=== PATIENT | male | born 1975 | race African-American/Black ===

== ENCOUNTER 2024-03-04 15:53 | Outpatient (AMB) | payer MEDICAID, SELFPAY ==
--- NOTE | 2024-03-04 15:52 | ORTHONT_ITS ---
Med/Allergies Allergies & Medications Allergies clarithromycin Allergy (Unknown, Verified 03/04/24 15:52) sea food Allergy (Uncoded 03/04/24 15:52) Medication Reconciliation loratadine 10 mg tablet 10 mg PO QDAY #0 tabs 06/10/15 [History Confirmed 03/04/24] albuterol sulfate 90 mcg/actuation aerosol inhaler (Ventolin HFA) 2 puff inhalation Q6H 07/18/17 [History Confirmed 03/04/24] aspirin 81 mg tablet,delayed release (Brionna Low Dose Aspirin) 81 mg PO DAILY 07/18/17 [History Confirmed 03/04/24] meloxicam 7.5 mg tablet 7.5 mg PO QDAY #45 tabs 10/12/23 [Rx Confirmed 03/04/24] Subjective Visit Visit for: follow up visit, knee and injections Immunization / Flu Flu Vaccine in the Last 12 Months: No Flu Vaccine Exclusion Criteria: No Exclusion Criteria History of Present Illness Chief complaint: LEFT KNEE PAIN. FOLLOW UP 3 MONTH KNEE INJECTION Patient is a pleasant 48-year-old male with bilateral knees. The left knee pain is worse than the right. Has tried braces, ibuprofen physical therapy. The pain has been ongoing for the last several years. He has lost a lot of weight. He tried injections and it only lasted for 2 weeks. We discussed this case and insurance denied it. They did not think that he had Kellgren-Ra grade 4 changes and thus MRIs demonstrating severe arthritis was not enough for that. We thus will continue with conservative management. I also discussed that he should get a second opinion. He is asking for a scooter and discussed with him that I have severe reservations about going to wheelchair or scooter as this will result in stiffness and worsening of his symptoms Personal History Red flag PMH: none (NON SMOKER ) Pain Pain level (0-10): 8 Pain duration: CONSTANT Pain location: inside (medial) and outside (lateral) Pain quality: sharp, dull and aching Pain timing: night and increases with activity Associated signs & symptoms: weakness and stiffness Ambulatory data Ambulatory device: none Treatments Number of previous injections: 2 Improvement with previous injections: No Improvement with PT: No Improvement with NSAIDS: no Review of Systems Review of Systems: All systems negative unless otherwise noted in HPI. Assessment and Plan Problem List (1) Arthritis of both knees: Status: Acute Plan: Patient is a 48-year-old male with bilateral knee arthritis of moderate severity. We discussed nonoperative and operative options. We tried to get authorization for total knee replacement well and this is was denied. We thus recommend injections and anti-inflammatories and continued physical therapy. We will have to proceed with conservative treatment at this time. I discussed with the patient that it may be worth getting a second opinion or pain management doctor. We will see him back for bilateral knee injections at the next visit Office Procedures GNS Level of Care Nursing/Assessment Patient Status: Established Patient Nursing Assessment/Reassesment: Medication Reconciliation, Update PMH in EMR and Vital Signs Coordination of Care: Complex Care and Chronic Disease 1-5, Education Complex Pt/Fam, Consent,records obtained, informed consent, 1 Ins Authorization, Results/Orders obtained and Staff clarify orders Established Patient Charge Established Patient Point Assignment: 110 Telehealth Telemed Phone/Video with patient at home & Dr,PA,SUPERVISOR RIDE ASSEMBLY: Yes
== END 2024-03-04 15:56 | disposition home or self-care (01) ==
LOC: HODSRG 15:53
PROVIDERS: PCP Physician Assistant; Referring Provider Physician Assistant; Supervising Provider Orthopaedic Surgery Adult Reconstructive Orthopaedic Surgery; Visit Provider Orthopaedic Surgery Adult Reconstructive Orthopaedic Surgery
DX: M17.0 Bilateral primary osteoarthritis of knee (principal); M25.562 Pain in left knee; M25.561 Pain in right knee
CPT/HCPCS: 99212; G0463

== ENCOUNTER 2024-03-21 12:59 | Outpatient (AMB) | payer MEDICAID, SELFPAY ==
[2024-03-21 13:09] VITALS: BP 155/94; PULSE 71; RESP 18; TEMP 36.3; O2SAT 99; BMI 38.1
--- NOTE | 2024-03-21 13:09 | RHCORTHONT_ITS ---
Vital signs 03/21/24 13:09 Height 1.83 m Height Method Stated Weight 127.63 kg Weight Measurement Method Standing Scale BMI 38.1 BP 155/94 H Blood Pressure Source Automatic Cuff Blood Pressure Location Right Upper Arm Position Sitting Respiration 18 Pulse 71 Pulse Source Monitor Temp 97.3 F Temp Source Temporal Artery Scan Pulse Oximetry (%) 99 Oxygen Delivery Method Room Air Med/Allergies Allergies & Medications Allergies clarithromycin Allergy (Unknown, Verified 03/21/24 13:10) sea food Allergy (Uncoded 03/21/24 13:10) Medication Reconciliation loratadine 10 mg tablet 10 mg PO QDAY #0 tabs 06/10/15 [History Confirmed 03/21/24] albuterol sulfate 90 mcg/actuation aerosol inhaler (Ventolin HFA) 2 puff inhalation Q6H 07/18/17 [History Confirmed 03/21/24] aspirin 81 mg tablet,delayed release (Brionna Low Dose Aspirin) 81 mg PO DAILY 07/18/17 [History Confirmed 03/21/24] meloxicam 7.5 mg tablet 7.5 mg PO QDAY #45 tabs 10/12/23 [Rx Confirmed 03/21/24] Exam Exam Patient is in no acute distress and is cooperative with the examination today. Breathing is nonlabored. In no respiratory distress. Bilateral extremities were evaluated and demonstrates sensation intact to light touch. Palpable pedal pulses are present. No significant edema is present. Bilateral hips were examined. The patient has no pain with log roll of the hips. Internal rotation to 30 degrees and external rotation to 30 degrees is painless. Negative FADIR. The left knee was examined. The left knee is in [varus] alignment. Range of motion from [0-115] degrees. Knee is stable to varus and valgus as well as AP translation with <5mm. Patient has a [negative] McMurrays. There is [no] pain with patellofemoral compression and [no] crepitus noted. The knee is [tender] to palpation [medially]. The right knee was also examined. The right knee is in [varus] alignment. Range of motion from [0-120] degrees. Knee is stable to varus and valgus as well as AP translation with <5mm. Patient has a [negative] McMurrays. There is [no] pain with patellofemoral compression and [no] crepitus noted. The knee is [tender] to palpation [medially]. I reviewed the patient's MRI from [facility]. This is dated 08/19/2023. This demonstrates severe tricompartmental articular loss and arthritis X-rays of the bilateral knees demonstrates moderate arthritis. The left knee MRI Demonstrate more pathology than the x-ray Assessment and Plan Problem List (1) Arthritis of both knees: Status: Acute Plan: Patient is a 48-year-old male with bilateral knee arthritis of moderate severity. We discussed nonoperative and operative options. We tried to get authorization for total knee replacement well and this is was denied. We thus recommend injections and anti-inflammatories and continued physical therapy. We thus will continue with bilateral knee injections today Recommend knee cortisone injections as patient would like to proceed with conservative treatment at this time. The risks and benefits of the procedure were reviewed with the patient and patient gave verbal consent to continue with the procedure. Procedure: performed by Dr. Hinojosa Using sterile technique the Bilateral knees were thoroughly prepped with alcohol, and approximately 1 cc of Kenalog 40 mg/mL and 4 cc of 1% lidocaine was injected into each knee without resistance into the medial tibial femoral joint space. The patient tolerated the procedure. Office Procedures GNS Level of Care Nursing/Assessment Patient Status: Established Patient Nursing Assessment/Reassesment: Medication Reconciliation, Update PMH in EMR and Vital Signs Coordination of Care: Complex Care and Chronic Disease 1-5, Education Complex Pt/Fam, Consent,records obtained, informed consent, Results/Orders obtained and Staff clarify orders Established Patient Charge Established Patient Point Assignment: 95 Established Patient Point Charge: EP Level 3 (80-115) Surgical Proc/IM SQ injection Major Surgical Procedure: Yes (BILATERAL KNEE INJECTIONS ) Medication Given Medication Given Medication Given: Yes Documented Dose Given: 8 Route: Infiitration Medication Given Medication Given Medication Given: Yes Documented Dose Given: 2 Route: Infiitration Office Meds Xylocaine 10 mg/mL (1 %) injection solution Performing Provider: Sandro Hinojosa MD Performing Location: [facility] Administered by: Sandro Hinojosa MD on 03/21/24 13:53 Dose Route Admin Location Dispensed Lot Number Expiration Date [facility] Dermatology Technician 40 mL Infiltration 40 mL [id number] [facility] triamcinolone acetonide 40 mg/mL suspension for injection Performing Provider: Sandro Hinojosa MD Performing Location: [facility] Administered by: Sandro Hinojosa MD on 03/21/24 13:53 Dose Route Admin Location Dispensed Lot Number Expiration Date [facility] Dermatology Technician 80 mg intra-articular 2 mL [id number] TEVA PARENTERAL MA Intake Visit Data Collection New Patient or Established: Established Patient (seen at [facility] within 3 years) Reason for Visit:: KNEE INJECTIONS Seen by Clinical Staff ONLY (RN/MA): No Verbal consent obtained for Telemed visit?: No Quality Measurement Specialist Required: No PCP or OBGYN visit in last 3 months: Yes Hx Now: No Do You Feel Safe at Home: Yes Authorities Contacted: N/A Questionairres Past Medical History Past Medical History Have you ever been diagnosed with any of the following: Neurological Problems Cerebrovascular Accident (CVA): Yes Cardiology Problems Myocardial Infarction: Yes Congestive Heart Failure: No Hypertension: Yes Respiratory Problems Chronic Obstructive Pulmonary Disease (COPD): No Asthma: Yes Smoking: No Smoking Cessation Counseling: No Smoking Exposure: No Tobacco Use: No Genital/Urinary Problems Renal Disease: No Endocrine Problems Diabetes Mellitus Type 1: No Diabetes Mellitus Type 2: No Subjective Visit Visit for: knee and injections Immunization / Flu Flu Vaccine in the Last 12 Months: Yes Flu Vaccine Exclusion Criteria: Already Received History of Present Illness Chief complaint: BILATERAL KNEE INJECTIONS There was a pleasant 48-year-old male with bilateral knee pain and bilateral knee arthritis. The pain is affecting his quality life and happiness. Please try to see if surgery is possible that this was denied with insurance. We will thus continue with conservative management. Personal History Red flag PMH: BMI BMI Counceling provided: Yes Pain Pain level (0-10): 8 Pain duration: ALL DAY Ambulatory data Ambulatory device: none Treatments Improvement with previous injections: No Improvement with PT: No Improvement with NSAIDS: n/a Review of Systems Review of Systems: All systems negative unless otherwise noted in HPI.
== END 2024-03-21 13:40 | disposition home or self-care (01) ==
LOC: HODSRG 12:59
PROVIDERS: PCP Physician Assistant; Referring Provider Physician Assistant; Supervising Provider Orthopaedic Surgery Adult Reconstructive Orthopaedic Surgery; Visit Provider Orthopaedic Surgery Adult Reconstructive Orthopaedic Surgery
DX: M17.0 Bilateral primary osteoarthritis of knee (principal); M25.562 Pain in left knee; M25.561 Pain in right knee; I10 Essential (primary) hypertension; Z86.73 Personal history of transient ischemic attack (TIA), and cerebral infarction without residual deficits; I25.2 Old myocardial infarction
CPT/HCPCS: 20610; 99213; J3301; J3490; G0463

== ENCOUNTER 2024-07-10 14:41 | Outpatient (AMB) | payer MEDICAID, SELFPAY ==
[2024-07-10 15:03] VITALS: BP 164/107; PULSE 78; RESP 18; TEMP 37.1; O2SAT 97; BMI 37.4
--- NOTE | 2024-07-10 15:03 | PD.ORTHCLVIS ---
Vital signs 07/10/24 15:03 Height 1.83 m Height Method Stated Weight 125.447 kg Weight Measurement Method Standing Scale BMI 37.4 BP 164/107 H Blood Pressure Source Automatic Cuff Blood Pressure Location Right Upper Arm Position Sitting Respiration 18 Pulse 78 Pulse Source Monitor Temp 98.7 F Temp Source Temporal Artery Scan Pulse Oximetry (%) 97 Oxygen Delivery Method Room Air Med/Allergies Allergies & Medications Allergies clarithromycin Allergy (Unknown, Verified 07/10/24 15:05) sea food Allergy (Uncoded 07/10/24 15:05) Medication Reconciliation loratadine 10 mg tablet 10 mg PO QDAY #0 tabs 06/10/15 [History Confirmed 07/10/24] albuterol sulfate 90 mcg/actuation aerosol inhaler (Ventolin HFA) 2 puff inhalation Q6H 07/18/17 [History Confirmed 07/10/24] aspirin 81 mg tablet,delayed release (Brionna Low Dose Aspirin) 81 mg PO DAILY 07/18/17 [History Confirmed 07/10/24] meloxicam 7.5 mg tablet 7.5 mg PO QDAY #45 tabs 10/12/23 [Rx Confirmed 07/10/24] semaglutide 0.25 mg or 0.5 mg (2 mg/3 mL) subcutaneous pen injector (Ozempic) 0.25 mg subcut QWEEK 07/10/24 [History Confirmed 07/10/24] Exam Exam Patient is in no acute distress and is cooperative with the examination today. Breathing is nonlabored. In no respiratory distress. Bilateral extremities were evaluated and demonstrates sensation intact to light touch. Palpable pedal pulses are present. No significant edema is present. Bilateral hips were examined. The patient has no pain with log roll of the hips. Internal rotation to 30 degrees and external rotation to 30 degrees is painless. Negative FADIR. The left knee was examined. The left knee is in [varus] alignment. Range of motion from [0-115] degrees. Knee is stable to varus and valgus as well as AP translation with <5mm. Patient has a [negative] McMurrays. There is [no] pain with patellofemoral compression and [no] crepitus noted. The knee is [tender] to palpation [medially]. The right knee was also examined. The right knee is in [varus] alignment. Range of motion from [0-120] degrees. Knee is stable to varus and valgus as well as AP translation with <5mm. Patient has a [negative] McMurrays. There is [no] pain with patellofemoral compression and [no] crepitus noted. The knee is [tender] to palpation [medially]. I reviewed the patient's MRI from [facility]. This is dated 08/19/2023. This demonstrates severe tricompartmental articular loss and arthritis X-rays of the bilateral knees demonstrates moderate arthritis. The left knee MRI Demonstrate more pathology than the x-ray Assessment and Plan Problem List (1) Arthritis of both knees: Status: Acute Plan: Patient is a 48-year-old male with bilateral knee arthritis of moderate severity. We discussed nonoperative and operative options. We tried to get authorization for total knee replacement well and this is was denied. We thus recommend injections and anti-inflammatories and continued physical therapy. He is doing well with injections and would like another round. He would like the injection in approximately 3 weeks Office Procedures GNS Level of Care Nursing/Assessment Patient Status: Established Patient Nursing Assessment/Reassesment: Medication Reconciliation, Update PMH in EMR and Vital Signs Coordination of Care: Complex Care and Chronic Disease 1-5, Consent,records obtained, informed consent, Education Simp Pt/Fam, Results/Orders obtained and Staff clarify orders Established Patient Charge Established Patient Point Assignment: 90 Established Patient Point Charge: EP Level 3 (80-115) MA Intake Visit Data Collection New Patient or Established: Established Patient (seen at [facility] within 3 years) Reason for Visit:: BILAT KNEE PAIN Seen by Clinical Staff ONLY (RN/MA): No Credit Control Manager Required: No PCP or OBGYN visit in last 3 months: Yes Hx Now: No Do You Feel Safe at Home: Yes Authorities Contacted: N/A Questionairres Past Medical History Past Medical History Have you ever been diagnosed with any of the following: Neurological Problems Cerebrovascular Accident (CVA): Yes Cardiology Problems Myocardial Infarction: Yes Congestive Heart Failure: No Hypertension: Yes Respiratory Problems Chronic Obstructive Pulmonary Disease (COPD): No Asthma: Yes Smoking: No Smoking Cessation Counseling: No Smoking Exposure: No Tobacco Use: No Genital/Urinary Problems Renal Disease: No Endocrine Problems Diabetes Mellitus Type 1: No Diabetes Mellitus Type 2: No Subjective Visit Visit for: follow up visit and knee (BILATERAL ) Immunization / Flu Flu Vaccine in the Last 12 Months: Yes Flu Vaccine Exclusion Criteria: Already Received History of Present Illness Chief complaint: BILATERAL KNEE INJECTIONS There was a pleasant 48-year-old male with bilateral knee pain and bilateral knee arthritis. The pain is affecting his quality life and happiness. Please try to see if surgery is possible that this was denied with insurance. We will thus continue with conservative management. Personal History Red flag PMH: none BMI Counceling provided: Yes Pain Pain level (0-10): 8 Pain duration: 1 WEEK Pain location: anterior and posterior Pain quality: dull and aching Pain timing: night and increases with activity Associated signs & symptoms: numbness and stiffness Ambulatory data Ambulatory device: none Walking distance (minutes): 5 Treatments Number of previous injections: 2 Improvement with previous injections: No Number of Physical Therapy sessions: 0 Improvement with PT: No Improvement with NSAIDS: n/a Review of Systems Review of Systems: All systems negative unless otherwise noted in HPI.
== END 2024-07-10 15:18 | disposition home or self-care (01) ==
LOC: HODSRG 14:41
PROVIDERS: PCP Physician Assistant; Referring Provider Physician Assistant; Supervising Provider Orthopaedic Surgery Adult Reconstructive Orthopaedic Surgery; Visit Provider Orthopaedic Surgery Adult Reconstructive Orthopaedic Surgery
DX: M17.0 Bilateral primary osteoarthritis of knee (principal); I10 Essential (primary) hypertension; I25.2 Old myocardial infarction; Z86.73 Personal history of transient ischemic attack (TIA), and cerebral infarction without residual deficits
CPT/HCPCS: 99213; G0463

== ENCOUNTER 2024-07-29 14:18 | Outpatient (AMB) | payer MEDICAID, SELFPAY ==
--- NOTE | 2024-07-29 14:38 | PD.ORTHCLVIS ---
Vital signs 07/29/24 14:39 Height 1.83 m Height Method Stated Weight 124.851 kg Weight Measurement Method Standing Scale BMI 37.3 BP 138/80 H Blood Pressure Source Automatic Cuff Blood Pressure Location Left Upper Arm Position Sitting Respiration 18 Pulse 86 Pulse Source Monitor Temp 98.6 F Temp Source Temporal Artery Scan Pulse Oximetry (%) 97 Oxygen Delivery Method Room Air Med/Allergies Allergies & Medications Allergies clarithromycin Allergy (Unknown, Verified 07/29/24 14:40) sea food Allergy (Uncoded 07/29/24 14:40) Medication Reconciliation loratadine 10 mg tablet 10 mg PO QDAY #0 tabs 06/10/15 [History Confirmed 07/29/24] albuterol sulfate 90 mcg/actuation aerosol inhaler (Ventolin HFA) 2 puff inhalation Q6H 07/18/17 [History Confirmed 07/29/24] aspirin 81 mg tablet,delayed release (Brionna Low Dose Aspirin) 81 mg PO DAILY 07/18/17 [History Confirmed 07/29/24] meloxicam 7.5 mg tablet 7.5 mg PO QDAY #45 tabs 10/12/23 [Rx Confirmed 07/29/24] semaglutide 0.25 mg or 0.5 mg (2 mg/3 mL) subcutaneous pen injector (Ozempic) 0.25 mg subcut QWEEK 07/10/24 [History Confirmed 07/29/24] Exam Exam Patient is in no acute distress and is cooperative with the examination today. Breathing is nonlabored. In no respiratory distress. Bilateral extremities were evaluated and demonstrates sensation intact to light touch. Palpable pedal pulses are present. No significant edema is present. Bilateral hips were examined. The patient has no pain with log roll of the hips. Internal rotation to 30 degrees and external rotation to 30 degrees is painless. Negative FADIR. The left knee was examined. The left knee is in [varus] alignment. Range of motion from [0-115] degrees. Knee is stable to varus and valgus as well as AP translation with <5mm. Patient has a [negative] McMurrays. There is [no] pain with patellofemoral compression and [no] crepitus noted. The knee is [tender] to palpation [medially]. The right knee was also examined. The right knee is in [varus] alignment. Range of motion from [0-120] degrees. Knee is stable to varus and valgus as well as AP translation with <5mm. Patient has a [negative] McMurrays. There is [no] pain with patellofemoral compression and [no] crepitus noted. The knee is [tender] to palpation [medially]. I reviewed the patient's MRI from [facility]. This is dated 08/19/2023. This demonstrates severe tricompartmental articular loss and arthritis X-rays of the bilateral knees demonstrates moderate arthritis. The left knee MRI Demonstrate more pathology than the x-ray Assessment and Plan Problem List (1) Arthritis of both knees: Status: Acute Plan: Patient is a 48-year-old male with bilateral knee arthritis of moderate severity. We discussed nonoperative and operative options. We tried to get authorization for total knee replacement well and this is was denied. We thus recommend injections and anti-inflammatories and continued physical therapy. He is doing well with injections and would like another round. Recommend knee cortisone injections as patient would like to proceed with conservative treatment at this time. The risks and benefits of the procedure were reviewed with the patient and patient gave verbal consent to continue with the procedure. Procedure: performed by Dr. Hinojosa Using sterile technique the Bilateral knees were thoroughly prepped with alcohol, and approximately 1 cc of Kenalog 40 mg/mL and 4 cc of 1% lidocaine was injected into each knee without resistance into the medial tibial femoral joint space. The patient tolerated the procedure. Office Procedures GNS Level of Care Nursing/Assessment Patient Status: Established Patient Nursing Assessment/Reassesment: Medication Reconciliation, Update PMH in EMR and Vital Signs Coordination of Care: Complex Care and Chronic Disease 1-5, Education Complex Pt/Fam, Consent,records obtained, informed consent, Results/Orders obtained and Staff clarify orders Established Patient Charge Established Patient Point Assignment: 95 Established Patient Point Charge: EP Level 3 (80-115) Surgical Proc/IM SQ injection Major Surgical Procedure: Yes (BILATERAL KNEE INJECTION) Medication Given Medication Given Medication Given: Yes Documented Dose Given: 8 Route: Infiitration Medication Given Medication Given Medication Given: Yes Documented Dose Given: 2 Route: Infiitration Office Meds Xylocaine 10 mg/mL (1 %) injection solution Performing Provider: Sandro Hinojosa MD Performing Location: [facility] Administered by: Sandro Hinojosa MD on 07/29/24 14:47 Dose Route Admin Location Dispensed Lot Number Expiration Date [facility] Employee Operations Examiner 40 mL Infiltration 40 mL [id number] 09/30/27 67193-525-51 [employer] triamcinolone acetonide 40 mg/mL suspension for injection Performing Provider: Sandro Hinojosa MD Performing Location: [facility] Administered by: Sandro Hinojosa MD on 07/29/24 14:47 Dose Route Admin Location Dispensed Lot Number Expiration Date [facility] Employee Operations Examiner 80 mg intra-articular 2 mL [id number] 01/29/26 4391-7433-57 TEVA PARENTERAL MA Intake Visit Data Collection New Patient or Established: Established Patient (seen at [facility] within 3 years) Reason for Visit:: BILATERAL KNEE INJECT/WORK NOTE Seen by Clinical Staff ONLY (RN/MA): No PCP or OBGYN visit in last 3 months: Yes Hx Now: No Do You Feel Safe at Home: Yes Authorities Contacted: N/A Questionairres Past Medical History Past Medical History Have you ever been diagnosed with any of the following: Neurological Problems Cerebrovascular Accident (CVA): Yes Cardiology Problems Myocardial Infarction: Yes Congestive Heart Failure: No Hypertension: Yes Respiratory Problems Chronic Obstructive Pulmonary Disease (COPD): No Asthma: Yes Smoking: No Smoking Cessation Counseling: No Smoking Exposure: No Tobacco Use: No Genital/Urinary Problems Renal Disease: No Endocrine Problems Diabetes Mellitus Type 1: No Diabetes Mellitus Type 2: No Subjective Visit Visit for: follow up visit, knee and injections Immunization / Flu Flu Vaccine in the Last 12 Months: Yes Flu Vaccine Exclusion Criteria: No Exclusion Criteria and Already Received History of Present Illness Chief complaint: BILATERAL KNEE INJECTIONS There was a pleasant 48-year-old male with bilateral knee pain and bilateral knee arthritis. The pain is affecting his quality life and happiness. Please try to see if surgery is possible that this was denied with insurance. We will thus continue with conservative management. We will continue with coritsone injections today as he had over 3 months of relief with the last ones. Personal History Red flag PMH: none BMI Counceling provided: Yes Pain Pain level (0-10): 8 Pain duration: COMES AND GOES Pain location: inside (medial), anterior and posterior Pain quality: dull and aching Pain timing: night and increases with activity Associated signs & symptoms: numbness and stiffness Ambulatory data Ambulatory device: none Walking distance (minutes): 5 Treatments Number of previous injections: 2 Improvement with previous injections: Yes Number of Physical Therapy sessions: 0 Improvement with PT: No Improvement with NSAIDS: no Review of Systems Review of Systems: All systems negative unless otherwise noted in HPI.
[2024-07-29 14:39] VITALS: BP 138/80; PULSE 86; RESP 18; TEMP 37; O2SAT 97; BMI 37.3
== END 2024-07-29 14:45 | disposition home or self-care (01) ==
LOC: HODSRG 14:18
PROVIDERS: PCP Physician Assistant; Referring Provider Physician Assistant; Supervising Provider Orthopaedic Surgery Adult Reconstructive Orthopaedic Surgery; Visit Provider Orthopaedic Surgery Adult Reconstructive Orthopaedic Surgery
DX: M17.0 Bilateral primary osteoarthritis of knee (principal); M25.562 Pain in left knee; M25.561 Pain in right knee; I10 Essential (primary) hypertension; I25.2 Old myocardial infarction; Z86.73 Personal history of transient ischemic attack (TIA), and cerebral infarction without residual deficits
CPT/HCPCS: 20610; 99213; J3301; J3490; G0463

== ENCOUNTER 2024-10-28 09:59 | Outpatient (AMB) | payer MEDICAID, SELFPAY ==
--- NOTE | 2024-10-28 10:14 | ORTHONT_ITS ---
Vital signs 10/28/24 10:24 Height 1.83 m Height Method Measured Weight 117.651 kg Weight Measurement Method Standing Scale BMI 35.1 BP 163/103 H Blood Pressure Source Automatic Cuff Blood Pressure Location Left Upper Arm Position Sitting Respiration 18 Pulse 77 Pulse Source Monitor Temp 98.1 F Temp Source Temporal Artery Scan Pulse Oximetry (%) 96 Oxygen Delivery Method Room Air Med/Allergies Allergies & Medications Allergies clarithromycin Allergy (Unknown, Verified 10/28/24 10:25) sea food Allergy (Uncoded 10/28/24 10:25) Medication Reconciliation loratadine 10 mg tablet 10 mg PO QDAY #0 tabs 06/10/15 [History Confirmed 10/28/24] albuterol sulfate 90 mcg/actuation aerosol inhaler (Ventolin HFA) 2 puff inhalation Q6H 07/18/17 [History Confirmed 10/28/24] aspirin 81 mg tablet,delayed release (Brionna Low Dose Aspirin) 81 mg PO DAILY 07/18/17 [History Confirmed 10/28/24] semaglutide 0.25 mg or 0.5 mg (2 mg/3 mL) subcutaneous pen injector (Ozempic) 0.25 mg subcut QWEEK 07/10/24 [History Confirmed 10/28/24] meloxicam 7.5 mg tablet 7.5 mg PO QDAY #45 tabs 10/28/24 [Rx Confirmed 10/28/24] Exam Exam Patient is in no acute distress and is cooperative with the examination today. Breathing is nonlabored. In no respiratory distress. Bilateral extremities were evaluated and demonstrates sensation intact to light touch. Palpable pedal pulses are present. No significant edema is present. Bilateral hips were examined. The patient has no pain with log roll of the hips. Internal rotation to 30 degrees and external rotation to 30 degrees is painless. Negative FADIR. The left knee was examined. The left knee is in [varus] alignment. Range of motion from [0-115] degrees. Knee is stable to varus and valgus as well as AP translation with <5mm. Patient has a [negative] McMurrays. There is [no] pain with patellofemoral compression and [no] crepitus noted. The knee is [tender] to palpation [medially]. The right knee was also examined. The right knee is in [varus] alignment. Range of motion from [0-120] degrees. Knee is stable to varus and valgus as well as AP translation with <5mm. Patient has a [negative] McMurrays. There is [no] pain with patellofemoral compression and [no] crepitus noted. The knee is [tender] to palpation [medially]. I reviewed the patient's MRI from [facility]. This is dated 08/19/2023. This demonstrates severe tricompartmental articular loss and arthritis X-rays of the bilateral knees demonstrates moderate arthritis. The left knee MRI Demonstrate more pathology than the x-ray Assessment and Plan Problem List (1) Arthritis of both knees: Status: Acute Plan: Patient is a 48-year-old male with bilateral knee arthritis of moderate severity. We discussed nonoperative and operative options. We tried to get a uthorization for total knee replacement well and this is was denied. We thus recommend injections and anti-inflammatories and continued physical therapy. He is doing well with injections and would like another round. Recommend knee cortisone injection as patient would like to proceed with conservative treatment at this time. The risks and benefits of the procedure were reviewed with the patient and patient gave verbal consent to continue with the procedure. Procedure: performed by Dr. Hinojosa Using sterile technique the left knee was thoroughly prepped with alcohol, and approximately 1 cc of Depo-Medrol 80mg/mL and 4 cc of 0.2% ropivacaine was injected without resistance into the medial tibial femoral joint space. The patient tolerated the procedure. Recommend knee cortisone injection as patient would like to proceed with conservative treatment at this time. The risks and benefits of the procedure were reviewed with the patient and patient gave verbal consent to continue with the procedure. Procedure: performed by Dr. Hinojosa Using sterile technique the Right knee was thoroughly prepped with alcohol, and approximately 1 cc of Depo-Medrol 80mg/mL and 4 cc of 0.2% ropivacaine was injected without resistance into the medial tibial femoral joint space. The patient tolerated the procedure. Office Procedures GNS Level of Care Nursing/Assessment Patient Status: Established Patient Nursing Assessment/Reassesment: Medication Reconciliation, Update PMH in EMR and Vital Signs Coordination of Care: Complex Care and Chronic Disease 1-5, Education Complex Pt/Fam, Consent,records obtained, informed consent, Results/Orders obtained and Staff clarify orders Established Patient Charge Established Patient Point Assignment: 95 Established Patient Point Charge: EP Level 3 (80-115) Surgical Proc/IM SQ injection Major Surgical Procedure: Yes (BILATERAL KNEE INJECTION) Medication Given Medication Given Medication Given: Yes Documented Dose Given: 1 Route: Infiitration Medication Given Medication Given Medication Given: Yes Documented Dose Given: 1 Route: Infiitration Medication Given Medication Given Medication Given: Yes Documented Dose Given: 4 Route: Infiitration Medication Given Medication Given Medication Given: Yes Documented Dose Given: 4 Route: Infiitration Office Meds methylprednisolone acetate 80 mg/mL suspension for injection Performing Provider: Sandro Hinojosa MD Performing Location: [facility] Administered by: Sandro Hinojosa MD on 10/28/24 10:28 Dose Route Admin Location Dispensed Lot Number Expiration Date FORMERLY NAMED [facility] [employer] 80 mg intra-articular 1 mL methylprednisolone acetate 80 mg/mL suspension for injection Performing Provider: Sandro Hinojosa MD Performing Location: [facility] Administered by: Sandro Hinojosa MD on 10/28/24 10:28 Dose Route Admin Location Dispensed Lot Number Expiration Date FORMERLY NAMED [facility] [employer] 80 mg intra-articular 1 mL [id number] 05/01/26 2694-9439-57 [facility] ropivacaine (PF) 2 mg/mL (0.2 %) injection solution Performing Provider: Sandro Hinojosa MD Performing Location: [facility] Administered by: Sandro Hinojosa MD on 10/28/24 10:28 Dose Route Admin Location Dispensed Lot Number Expiration Date FORMERLY NAMED [facility] [employer] 20 mL Infiltration 20 mL [id number] 01/29/26 79360-945-27 [facility] ropivacaine (PF) 2 mg/mL (0.2 %) injection solution Performing Provider: Sandro Hinojosa MD Performing Location: [facility] Administered by: Sandro Hinojosa MD on 10/28/24 10:28 Dose Route Admin Location Dispensed Lot Number Expiration Date FORMERLY NAMED [facility] [employer] 20 mL Infiltration 20 mL [id number] 01/29/26 03096-676-21 [place] Intake Visit Data Collection New Patient or Established: Established Patient (seen at [facility] within 3 years) Reason for Visit:: 3 MONTH F/U BILATERAL KNEE INJECTION Seen by Clinical Staff ONLY (RN/MA): No Verbal consent obtained for Telemed visit?: Yes Scientific Laboratory Supervisor Required: No PCP or OBGYN visit in last 3 months: Yes Hx Now: No Do You Feel Safe at Home: Yes Authorities Contacted: N/A Questionairres Past Medical History Past Medical History Have you ever been diagnosed with any of the following: Neurological Problems Cerebrovascular Accident (CVA): Yes Cardiology Problems Myocardial Infarction: Yes Congestive Heart Failure: No Hypertension: Yes Respiratory Problems Chronic Obstructive Pulmonary Disease (COPD): No Asthma: Yes Smoking: No Smoking Cessation Counseling: No Smoking Exposure: No Tobacco Use: No Genital/Urinary Problems Renal Disease: No Endocrine Problems Diabetes Mellitus Type 1: No Diabetes Mellitus Type 2: No Subjective Visit Visit for: follow up visit, knee and injections Immunization / Flu Flu Vaccine in the Last 12 Months: Yes Flu Vaccine Exclusion Criteria: No Exclusion Criteria and Already Received History of Present Illness Chief complaint: BILATERAL KNEE INJECTIONS There was a pleasant 48-year-old male with bilateral knee pain and bilateral knee arthritis. The pain is affecting his quality life and happiness. Please try to see if surgery is possible that this was denied with insurance. We will thus continue with conservative management. We will continue with coritsone injections today as he had over 3 months of relief with the last ones. Personal History Red flag PMH: none BMI Counceling provided: Yes Pain Pain level (0-10): 8 Pain duration: COMES AND GOES Pain location: inside (medial), anterior and posterior Pain quality: dull and aching Pain timing: night and increases with activity Associated signs & symptoms: numbness and stiffness Ambulatory data Ambulatory device: none Walking distance (minutes): 5 Treatments Number of previous injections: 2 Improvement with previous injections: Yes Number of Physical Therapy sessions: 0 Improvement with PT: No Improvement with NSAIDS: no Review of Systems Review of Systems: All systems negative unless otherwise noted in HPI.
[2024-10-28 10:24] VITALS: BP 163/103; PULSE 77; RESP 18; TEMP 36.7; O2SAT 96; BMI 35.1
== END 2024-10-28 10:35 | disposition home or self-care (01) ==
LOC: HODSRG 09:59
PROVIDERS: PCP Physician Assistant; Referring Provider Physician Assistant; Supervising Provider Orthopaedic Surgery Adult Reconstructive Orthopaedic Surgery; Visit Provider Orthopaedic Surgery Adult Reconstructive Orthopaedic Surgery
DX: M17.0 Bilateral primary osteoarthritis of knee (principal); M25.562 Pain in left knee; M25.561 Pain in right knee; I10 Essential (primary) hypertension; Z09 Encounter for follow-up examination after completed treatment for conditions other than malignant neoplasm; Z86.73 Personal history of transient ischemic attack (TIA), and cerebral infarction without residual deficits; I25.2 Old myocardial infarction
CPT/HCPCS: 20610; 99213; J1010; J2795; G0463

== ENCOUNTER 2025-01-30 10:12 | Outpatient (AMB) | payer MEDICAID, SELFPAY ==
[2025-01-30 10:25] VITALS: BP 144/88; PULSE 83; RESP 18; TEMP 36.5; O2SAT 98; BMI 34.4
--- NOTE | 2025-01-30 10:25 | PD.ORTHCLVIS ---
Vital signs 01/30/25 10:25 Height 1.83 m Height Method Measured Weight 115.354 kg Weight Measurement Method Standing Scale BMI 34.4 BP 144/88 H Blood Pressure Source Automatic Cuff Blood Pressure Location Left Upper Arm Position Sitting Respiration 18 Pulse 83 Pulse Source Monitor Temp 97.7 F Temp Source Temporal Artery Scan Pulse Oximetry (%) 98 Oxygen Delivery Method Room Air Med/Allergies Allergies & Medications Allergies clarithromycin Allergy (Unknown, Verified 01/30/25 10:26) sea food Allergy (Uncoded 01/30/25 10:26) Medication Reconciliation loratadine 10 mg tablet 10 mg PO QDAY #0 tabs 06/10/15 [History Confirmed 01/30/25] albuterol sulfate 90 mcg/actuation aerosol inhaler (Ventolin HFA) 2 puff inhalation Q6H 07/18/17 [History Confirmed 01/30/25] aspirin 81 mg tablet,delayed release (Brionna Low Dose Aspirin) 81 mg PO DAILY 07/18/17 [History Confirmed 01/30/25] semaglutide 0.25 mg or 0.5 mg (2 mg/3 mL) subcutaneous pen injector (Ozempic) 0.25 mg subcut QWEEK 07/10/24 [History Confirmed 01/30/25] meloxicam 7.5 mg tablet 7.5 mg PO QDAY #45 tabs 10/28/24 [Rx Confirmed 01/30/25] Exam Exam Patient is in no acute distress and is cooperative with the examination today. Breathing is nonlabored. In no respiratory distress. Bilateral extremities were evaluated and demonstrates sensation intact to light touch. Palpable pedal pulses are present. No significant edema is present. Bilateral hips were examined. The patient has no pain with log roll of the hips. Internal rotation to 30 degrees and external rotation to 30 degrees is painless. Negative FADIR. The left knee was examined. The left knee is in [varus] alignment. Range of motion from [0-115] degrees. Knee is stable to varus and valgus as well as AP translation with <5mm. Patient has a [negative] McMurrays. There is [no] pain with patellofemoral compression and [no] crepitus noted. The knee is [tender] to palpation [medially]. The right knee was also examined. The right knee is in [varus] alignment. Range of motion from [0-120] degrees. Knee is stable to varus and valgus as well as AP translation with <5mm. Patient has a [negative] McMurrays. There is [no] pain with patellofemoral compression and [no] crepitus noted. The knee is [tender] to palpation [medially]. I reviewed the patient's MRI from [facility]. This is dated 08/19/2023. This demonstrates severe tricompartmental articular loss and arthritis X-rays of the bilateral knees demonstrates moderate arthritis. The left knee MRI Demonstrate more pathology than the x-ray Assessment and Plan Problem List (1) Arthritis of both knees: Status: Acute Plan: Patient is a 48-year-old male with bilateral knee arthritis of moderate severity. We discussed nonoperative and operative options. We tried to get authorization for total knee replacement well and this is was denied. We thus recommend injections and anti-inflammatories and continued physical therapy. He is doing well with injections and would like another round. Recommend knee cortisone injection as patient would like to proceed with conservative treatment at this time. The risks and benefits of the procedure were reviewed with the patient and patient gave verbal consent to continue with the procedure. Procedure: performed by Dr. Hinojosa Using sterile technique the left knee was thoroughly prepped with alcohol, and approximately 1 cc of Depo-Medrol 80mg/mL and 4 cc of 0.2% ropivacaine was injected without resistance into the medial tibial femoral joint space. The patient tolerated the procedure. Recommend knee cortisone injection as patient would like to proceed with conservative treatment at this time. The risks and benefits of the procedure were reviewed with the patient and patient gave verbal consent to continue with the procedure. Procedure: performed by Dr. Hinojosa Using sterile technique the Right knee was thoroughly prepped with alcohol, and approximately 1 cc of Depo-Medrol 80mg/mL and 4 cc of 0.2% ropivacaine was injected without resistance into the medial tibial femoral joint space. The patient tolerated the procedure. Office Procedures GNS Level of Care Nursing/Assessment Patient Status: Established Patient Nursing Assessment/Reassesment: Medication Reconciliation, Update PMH in EMR and Vital Signs Coordination of Care: Complex Care and Chronic Disease 1-5, Education Complex Pt/Fam, Consent,records obtained, informed consent, Results/Orders obtained and Staff clarify orders Established Patient Charge Established Patient Point Assignment: 95 Established Patient Point Charge: EP Level 3 (80-115) Surgical Proc/IM SQ injection Minor Surgical Procedure: Yes (KNEE INJECTION ) Medication Given Medication Given Medication Given: Yes Documented Dose Given: 2 Route: Infiitration Medication Given Medication Given Medication Given: Yes Documented Dose Given: 8 Route: Infiitration Office Meds methylprednisolone acetate 80 mg/mL suspension for injection Performing Provider: Sandro Hinojosa MD Performing Location: [facility] Administered by: Sandro Hinojosa MD on 01/30/25 13:19 Dose Route Admin Location Dispensed Lot Number Expiration Date Package NDC NDC [employer] 160 mg intra-articular KNEE 2 mL [id number] 10/30/26 [address]-7 [id number] [employer] ropivacaine (PF) 2 mg/mL (0.2 %) injection solution Performing Provider: Sandro Hinojosa MD Performing Location: [facility] Administered by: Sandro Hinojosa MD on 01/30/25 13:19 Dose Route Admin Location Dispensed Lot Number Expiration Date Package NDC NDC Cms Expert 40 mL Infiltration KNEE 40 mL [id number] 05/02/27 14822-082-56 [id number] [facility] Intake Visit Data Collection New Patient or Established: Established Patient (seen at [facility] within 3 years) Reason for Visit:: 3 MONTH F/U BILATERAL KNEE INJECTION Seen by Clinical Staff ONLY (RN/MA): No Verbal consent obtained for Telemed visit?: Yes Embedded Software Developer Required: No PCP or OBGYN visit in last 3 months: Yes Hx Now: No Do You Feel Safe at Home: Yes Authorities Contacted: N/A Questionairres Past Medical History Past Medical History Have you ever been diagnosed with any of the following: Neurological Problems Cerebrovascular Accident (CVA): Yes Cardiology Problems Myocardial Infarction: Yes Congestive Heart Failure: No Hypertension: Yes Respiratory Problems Chronic Obstructive Pulmonary Disease (COPD): No Asthma: Yes Smoking: No Smoking Cessation Counseling: No Smoking Exposure: No Tobacco Use: No Genital/Urinary Problems Renal Disease: No Endocrine Problems Diabetes Mellitus Type 1: No Diabetes Mellitus Type 2: No Subjective Visit Visit for: follow up visit, knee and injections Immunization / Flu Flu Vaccine in the Last 12 Months: Yes Flu Vaccine Exclusion Criteria: No Exclusion Criteria and Already Received History of Present Illness Chief complaint: BILATERAL KNEE INJECTIONS There was a pleasant 48-year-old male with bilateral knee pain and bilateral knee arthritis. The pain is affecting his quality life and happiness. Please try to see if surgery is possible that this was denied with insurance. We will thus continue with conservative management. We will continue with coritsone injections today as he had over 3 months of relief with the last ones. Personal History Red flag PMH: none BMI Counceling provided: Yes Pain Pain level (0-10): 8 Pain duration: COMES AND GOES Pain location: inside (medial), anterior and posterior Pain quality: dull and aching Pain timing: night and increases with activity Associated signs & symptoms: numbness and stiffness Ambulatory data Ambulatory device: none Walking distance (minutes): 5 Treatments Number of previous injections: 2 Improvement with previous injections: Yes Number of Physical Therapy sessions: 0 Improvement with PT: No Improvement with NSAIDS: no Review of Systems Review of Systems: All systems negative unless otherwise noted in HPI.
== END 2025-01-30 10:28 | disposition home or self-care (01) ==
LOC: HODSRG 10:12
PROVIDERS: PCP Physician Assistant; Referring Provider Physician Assistant; Supervising Provider Orthopaedic Surgery Adult Reconstructive Orthopaedic Surgery; Visit Provider Orthopaedic Surgery Adult Reconstructive Orthopaedic Surgery
DX: M25.562 Pain in left knee (principal); M25.561 Pain in right knee; I10 Essential (primary) hypertension
CPT/HCPCS: 20610; 99213; J1010; J2795; G0463